=== PATIENT | male | born 1995 | race Caucasian/White ===

== ENCOUNTER 2017-06-17 09:02 | Outpatient (CLI) | payer BC ==
--- NOTE | 2017-06-17 15:13 | MRI ---
MRI RIGHT WRIST WITHOUT CONTRAST: HISTORY: Kienbock's disease. COMPARISON: None. FINDINGS: There is partial collapse of the lateral one-half of the lunate with sclerosis and edema of the lunat e, the proximal pole of the scaphoid, as well as of the capitate and hamate. There is reactive edema of the medial margin of the radius at the radial fossa. There is negative ulnar variance. There is marked synovitis of the wrist. The scapholunate ligament is intact. Normal scapholunate and lunoca pitate angles. There is some abnormal edema within the pisiform. Low grade tenosynovitis of the extensor digitorum tendons. There is also mild edema within the prona tor quadratus. IMPRESSION: 1. Sclerosis and loss of height of the lateral lunate with fracture, avascular necrosis. Abnormal s clerosis noted to the entire lunate, not just the lateral one-half. 2. Abnormal edema of the lunate fossa from impaction. 3. Intact triangular fibrocartilage. 4. Edema within the triquetrum, pisiform, capitate, and hamate, likely all reactive due to synovitis and hyperemia. The dorsal intrinsic ligaments are thickened, though all may be reactive in nature. The nurse at Dr. Tian's office was called at 2:10 p.m. CODE CR POS: KEEGAN
== END 2017-06-17 09:03 | disposition home or self-care (01) ==
LOC: SCSMRI 09:02
PROVIDERS: ATTEND Orthopaedic Surgery Hand Surgery
DX: M93.1 Kienbock's disease of adults (principal); R60.9 Edema, unspecified

== ENCOUNTER 2017-06-30 13:44 | Outpatient (CLI) | payer BC ==
[2017-06-30 14:47] LABS: #Eosinphils 0.2 thou/uL (0.0-0.7); #Lymphocytes 1.8 thou/uL (1.20-3.40); #Monocytes 0.6 thou/uL (0.11-0.59); #Neutrophils 4.2 thou/uL (1.40-6.50); %Basophils 0.5 % (0.0-1.0); %Eosinophils 2.4 % (0.0-10.0); %Lymphocytes 25.9 % (21.0-51.0); %Neutrophils 62.1 % (42.0-75.0); Hemoglobin 16.2 g/dL (14.0-18.0); Mean Corpuscular HGB CONC 34.6 g/dL (32.0-36.0); Mean Corpuscular Hemoglobin 32.4 pg (27.0-31.0); Mean Corpuscular Volume 93.8 fl (80.0-94.0); Mean Platelet Volume 6.9 fL (7.4-10.4); Platelet Count 216 thou/uL (130-400); RBC Distribution Width 11.2 % (11.5-14.5); Red Blood Cell (RBC) Count 4.98 mill/uL (4.70-6.10); White Blood Cell (WBC) Count 6.8 thou/uL (4.8-10.8)
== END 2017-06-30 13:45 | disposition home or self-care (01) ==
LOC: LABBT 13:44
PROVIDERS: ATTEND Orthopaedic Surgery Hand Surgery
DX: Z01.812 Encounter for preprocedural laboratory examination (principal); M93.1 Kienbock's disease of adults
CPT/HCPCS: 85025; 85652

== ENCOUNTER 2017-07-01 07:22 | Observation (INO) | payer BC ==
[2017-06-30 14:16] VITALS: BMI 28.7
[2017-07-01] MEDS ORDERED: CEFAZOLIN/Water 2 GM/20 ML SYRINGE ONE (08:04)
[2017-07-01] MEDS ORDERED: Midazolam HCl 2 mg/2 ml Vial ONE (08:50)
[2017-07-01] MEDS ORDERED: Fentanyl 100 MCG/2 ML VIAL ONE ×2 (08:50→11:40)
[2017-07-01] MEDS ORDERED: Sodium Chloride 0.9% 10 ML ONE (11:38)
[2017-07-01] MEDS ORDERED: Thrombin 5000 UNITS/5 ML VIAL ONE (11:39)
[2017-07-01] MEDS ORDERED: Bacitracin Zinc Ointment 30 gm TUBE ONE (11:39)
[2017-07-01] MEDS ORDERED: HYDROmorphone 0.5 MG/0.5 ML SYRINGE ONE (11:40)
[2017-07-01] MEDS ORDERED: Ketorolac Tromethamine 30 MG/ML VIAL ONE ×2 (14:25→17:13)
[2017-07-01] MEDS ORDERED: Sterile Water 10 ML VIAL ONE (14:25)
[2017-07-01] MEDS ORDERED: CEFAZOLIN 1 GM VIAL ONE (14:25)
[2017-07-01] MEDS ORDERED: Dexamethasone 20 MG/5 ML VIAL ONE (14:25)
[2017-07-01] MEDS ORDERED: Propofol 200 MG/20 ML VIAL ONE (14:25)
[2017-07-01] MEDS ORDERED: Lidocaine 1% PF 5 ML VIAL ONE (14:25)
[2017-07-01] MEDS ORDERED: Ondansetron HCl/PF 4 MG/2 ML Vial ONE (14:25)
[2017-07-01] MEDS ORDERED: Bupivacaine/Epinephrine 0.25% 30 ML VIAL ONE (14:56)
[2017-07-01] MEDS ORDERED: Bupivacaine PF 0.5% 30 ML VIAL ONE (14:56)
[2017-07-01] MEDS ORDERED: HYDROcodone/Acetaminophen 10/325 mg Tablet PO PRN ×2 (15:02)
[2017-07-01] MEDS ORDERED: Zolpidem Tartrate 5 MG TAB PO PRN (15:02)
[2017-07-01] MEDS ORDERED: Promethazine HCl 25 MG/ML VIAL IM PRN (15:02)
[2017-07-01] MEDS ORDERED: traMADol HCl 50 MG TAB PO PRN ×2 (15:02)
[2017-07-01] MEDS ORDERED: Ondansetron HCl/PF 4 MG/2 ML Vial IVP PRN ×2 (15:02→17:29)
[2017-07-01] MEDS ORDERED: Ropivacaine 0.2% 550 ML 550 ML NERVE BLCK SCH (15:02)
[2017-07-01] MEDS ORDERED: Fentanyl 100 MCG/2 ML VIAL IV PRN (15:04)
[2017-07-01] MEDS ORDERED: HYDROcodone/Acetaminophen 5/325 mg Tablet PO PRN (17:28)
[2017-07-01] MEDS ORDERED: Milk Of Magnesia 30 ML UDCUP PO PRN (17:28)
[2017-07-01] MEDS ORDERED: Ondansetron HCl/PF 4 MG/2 ML Vial IV PRN (17:28)
[2017-07-01] MEDS ORDERED: Bisacodyl 10 MG SUPP PR PRN (17:28)
[2017-07-01] MEDS ORDERED: Meperidine HCl/PF 25 MG/ML VIAL SLOW IVP PRN (17:29)
[2017-07-01] MEDS ORDERED: Promethazine HCl 25 MG/ML VIAL IM/IV PRN (17:29)
[2017-07-01] MEDS ORDERED: Promethazine HCl 25 MG/ML VIAL ONE (17:30)
[2017-07-01] MEDS ORDERED: [UNRECOGNIZED DRUG - REMARK] FS SCH (17:30)
[2017-07-01] MEDS: Sodium Chloride 0.9% 100 ML IV SCH ×2 (22:35→22:36)
[2017-07-01] MEDS: Ketorolac Tromethamine 30 MG/ML VIAL IVP SCH (22:36)
[2017-07-02] MEDS: Ketorolac Tromethamine 30 MG/ML VIAL IVP SCH ×4 (00:28→17:48)
[2017-07-02] MEDS: Sodium Chloride 0.9% 100 ML IV SCH ×4 (00:28→02:53)
[2017-07-02] MEDS: Sodium Chloride 0.9% 1,000 ML IV SCH ×2 (04:44→13:39)
--- NOTE | 2017-07-02 08:21 | RAD ---
INTRAOPERATIVE FLUOROSCOPY: History: Right wrist fracture. Comparison: None. FINDINGS: Seven fluoroscopic images demonstrate what appears to be a fiberglass cast with multiple surgical cli ps. Subsequent images demonstrate placement of an internal fixation plate across the distal radius. F racture lucency is noted. IMPRESSION: Intraoperative fluoroscopy as above. POS: ETELVINA
[2017-07-02 16:36] VITALS: BP 129/78; TEMP 97.9
--- NOTE | 2017-07-03 15:41 | OP ---
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 Also, ne crotic bone found within most of the lunate. PROCEDURE PERFORMED: 1. [place], under magnification, vascularized bone graft using the 4-5 intercompartmental segmental arterial system with a bone graft harvested, having excellent bleeding pedicle of approximately 1 cm in depth and only 3-4 mm wide. 2. Radial shortening osteotomy. 3. Bone grafting of the lunate vascularized as well as cortical cancellous chips. 4. Application of 2 mL bone plating in the host donor site from the radius for the vascularized bone graft dorsal radius. TOURNIQUET TIME: 120 minutes. DESCRIPTION OF PROCEDURE: After successful general LMA technique, the limb was prepped and draped. We used 7 minutes of elevation to achieve minimal exsanguination. We did not use an Esmarch in order to be able to see the vascular bed and inflated the tourniquet given us somewhat venous tourniquet e ffect. We then outlined a zigzag incision centered over the fourth and fifth dorsal compartment and then visualized the wrist joint, but then followed the compartment until we visualized both the fourt h and fifth extra compartmental artery. We then dissected retrograde back to where it came from the fifth dorsal and base of the fifth compartment. After opening that compartment and retracted the ext ensor digiti minimi ulnarly. There, once we filed this artery, approximately 2 cm proximal to the bi furcation to the 4, we clipped the artery and then dissected back. We then followed the 4th until we reached a bone blush, isolated it by lifting up the periosteum and preserving excellent dorsal flow and then used a combination of small osteotomes, Fannin blades to lift up a 5 mm wide by 1 cm long pi harry of bone that bled suddenly. We then maintained this pedicle to his maximum left and it easily co uld reach way past the lunate all the way to the mid portion of the scaphoid. We preserved this with a moist towel. Then we brought the C-arm into the field again, visualized the lunate, put a guidewi re for a 3.5 cannulated screw in the center of the lunate and then overdrilled this with a 2.7 drill. We then progressively enlarged this hole until it was approximately 4-1/2-5 mm wide and from here w e could then completely remove the necrotic bone from the lunate. We did this. There was a bleeding shell at the end of this time. After we removed all the bone, we then placed some cortical bone mindy vested from the same site with a vascularized bone through tricortical piece was located into the zoey ate to feel it up as the bone graft harvested and vascularized we did not fill the entire space. Onc e we had done this, enough room to place the vascularized bone, we had put the vascularized bone frances t under direct vision into the lunate from dorsal to palmar and it fit like a glove. We then deflated the tourniquet completely, we closed the wrist joint small capsulotomy which was a t ransverse capsulotomy with an interrupted #1 Ethibond and OS 4 needle. We closed the fourth and fift h compartments retinaculum with 4-0 Monocryl, undyed, 4-0 Monocryl for subcutaneous closure, and skin reapproximated with 4-0 nylon interrupted mattress. We then re-exsanguinated the limb, this time us ing a traditional Esmarch, I outlined the site for the osteotomy and then went to work. We dissected down to visualize the radius protecting the median nerve completely visualized and so it would not b e damaged with the osteotomy cut and the radial artery as well as associated flexor carpi radialis te ndons and the flexor digitorium tendons. We then found a spot that was slightly proximal to the bone graft site which would be more proximal than typical and placed the plate on the bone, bent it appro priately and then drilled a double-4 hole proximal on this site. Then, now with bone, the plat e would be appropriate position, we then brought on the cut guide for the radial technique whic h was just reverse on the ulna tight. It was quite overlapping on this young man's radius, so we def initely visualized the median nerve, protected it with 2 appropriate baby Hohmann retractors a nd 1 baby Hohmann retractor medial side to protect the artery and tendon. Once this was done, we mad e a 1.5 mm cut, removed the bone wafer, then we were parallel. We then placed the plate back on with all 4 screws drilled, reduced it using the coaptation device and then placed a lag screw across it. We now had 3 screws distal and 3 screws proximal. There was excellent reduction of the osteotomy to no gap formation both clinically and radiographically. At this point, we released the tourniquet, obtained hemostasis. The median nerve was visualized to a formal neuroplasty and it was not damaged whatsoever. Radial artery was intact and we obtained hemo stasis. We closed all the subcutaneous skin using a running 4-0 Monocryl, skin with 4-0 nylon interr upted mattress pattern and the patient had a bulky dressing applied. We gave 10 mL of Marcaine dorsa lly and 10 palmarly before we put the dressing on, the patient left the operating room without eviden ce of anesthetic or operative complication.
== END 2017-07-02 18:55 | disposition home or self-care (01) ==
LOC: SDC 07:22 → SURG A 21:24
PROVIDERS: ADMIT Orthopaedic Surgery Hand Surgery; ATTEND Orthopaedic Surgery Hand Surgery
PROC: 0PBH0ZZ Excision of Right Radius, Open Approach (ICD-10-PCS; principal; 2017-07-02)
PROC: 0RGN07Z Fusion of Right Wrist Joint with Autologous Tissue Substitute, Open Approach (ICD-10-PCS; 2017-07-02)
PROC: 0RGN04Z Fusion of Right Wrist Joint with Internal Fixation Device, Open Approach (ICD-10-PCS; 2017-07-02)
PROC: 0PRM07Z Replacement of Right Carpal with Autologous Tissue Substitute, Open Approach (ICD-10-PCS; 2017-07-02)
PROC: 0PBM0ZZ Excision of Right Carpal, Open Approach (ICD-10-PCS; 2017-07-02)
DX: M93.1 Kienbock's disease of adults (principal); Z98.890 Other specified postprocedural states
CPT/HCPCS: 76001; 96372; 96374; 96376; A4216; A4306; C1713; G0378; J0690; J1100; J1170; J1885; J2001; J2250; J2405; J2550; J2704; J2795; J3010; J3490; S0020